=== PATIENT | male | born 1975 | race Caucasian/White ===

== ENCOUNTER 2022-01-31 22:52 | Emergency (ER) | payer OTHER ==
[~2022-01-31] VITALS: Ht 170.2 cm; Wt 82.1 kg
[2022-01-31] MEDS ORDERED: DICLOFENAC SODI75 MG PO (23:41)
== END 2022-02-01 01:17 | disposition home or self-care (01) ==
LOC: ER 22:52
DX: S93.401A Sprain of unspecified ligament of right ankle, initial encounter (principal); V89.1XXA Person injured in unspecified nonmotor-vehicle accident, nontraffic, initial encounter; Y93.I9 Activity, other involving external motion; Y92.488 Other paved roadways as the place of occurrence of the external cause